=== PATIENT | female | born 1940 | race Caucasian/White ===

== ENCOUNTER 2021-02-17 09:34 | Outpatient (CLI) | payer MEDICARE, MEDICAID ==
[2021-02-17 10:10] LABS: ABG BASE EXCESS 1.8 mmol/L; ABG PCO2 42.9 mmHg (35.0-45.0); ABG PH 7.412 (7.350-7.450); ABG PO2 60.7 mmHg (75.0-100.0); COHb 0.8 % (0.5-1.5); MetHb 0.4 % (0.0-1.5); O2Hb 91.3 % (94.0-97.0); SITE, ABG Left Radial; VENT MODE, BG ROOM AIR
== END 2021-02-17 23:59 | disposition home or self-care (01) ==
LOC: RT 09:34
PROVIDERS: ATTEND Internal Medicine Pulmonary Disease
DX: R06.02 Shortness of breath (principal)
CPT/HCPCS: 36600; 82803-TC